=== PATIENT | female | born 1950 | race Caucasian/White ===

== ENCOUNTER 2022-01-05 15:35 | Inpatient (IN) | payer MEDICARE, MEDICAID ==
[2022-01-05 16:09] LABS: CHLORIDE,CL 104 mEq/L (98-106); SODIUM,NA 143 mEq/L (136-145)
[2022-01-05 16:31] LABS: PTT,PARTIAL THROMBOPLSTIN TIME 25.2 SEC (23.2-32.3)
[2022-01-05] MEDS: Sodium Chloride 0.9% 1,000 ML IV SCH (17:30)
[2022-01-05 17:39] LABS: AMPHETAMINES,URINE NEGATIVE (NEGATIVE); BARBITURATES,URINE NEGATIVE (NEGATIVE); BENZODIAZEPINE,URINE POSITIVE (NEGATIVE); MDMA (ECSTASY), URINE NEGATIVE (NEGATIVE); METHADONE,URINE NEGATIVE (NEGATIVE); METHAMPHETAMINES,URINE NEGATIVE (NEGATIVE); OPIATES,URINE POSITIVE (NEGATIVE); OXYCODONE,URINE POSITIVE (NEGATIVE); PHENCYCLIDINE,URINE NEGATIVE (NEGATIVE); TCA,URINE NEGATIVE (NEGATIVE)
[2022-01-05] MEDS ORDERED: Carvedilol 6.25 MG Tab PO ONE (18:16)
[2022-01-05] MEDS ORDERED: cloNIDine 0.1 MG Tab PO ONE (18:31)
[2022-01-05] MEDS: hydrALAZINE 25 MG Tab PO SCH (20:17)
[2022-01-05] MEDS: Simvastatin 40 MG Tab PO SCH (20:17)
[2022-01-06] MEDS: Sodium Chloride 0.9% 1,000 ML IV SCH (02:08)
[2022-01-06] MEDS: buPROPion 150 MG Tab.SR PO SCH (07:52)
[2022-01-06] MEDS: Carvedilol 6.25 MG Tab PO SCH ×2 (07:52→20:34)
[2022-01-06] MEDS: Estradiol 1 MG Tab PO SCH (07:52)
[2022-01-06] MEDS: Losartan 25 MG Tab PO SCH (07:52)
[2022-01-06] MEDS: Potassium Chloride 10 MEQ Tab.ER PO SCH (07:53)
[2022-01-06] MEDS: Ascorbic Acid 500 MG Tab PO SCH (07:53)
[2022-01-06] MEDS: Montelukast 10 MG Tab PO SCH (07:53)
[2022-01-06] MEDS: DULoxetine 30 MG Cap PO SCH (07:53)
[2022-01-06] MEDS: hydrALAZINE 25 MG Tab PO SCH ×2 (07:54→20:34)
[2022-01-06] MEDS: Pantoprazole 40 MG Tab.CR PO SCH (08:21)
[2022-01-06] MEDS ORDERED: oxyCODONE ER 10 MG TAB.ER PO PRN (10:19)
[2022-01-06] MEDS ORDERED: oxyCODONE 5 MG Tab PO PRN (10:51)
[2022-01-06] MEDS: Simvastatin 40 MG Tab PO SCH (20:34)
[2022-01-06] MEDS: Enoxaparin 40 MG/0.4 ML Syringe SUBCUT SCH (20:34)
[2022-01-07] MEDS: Ascorbic Acid 500 MG Tab PO SCH (07:43)
[2022-01-07] MEDS: Carvedilol 6.25 MG Tab PO SCH ×2 (07:43→20:47)
[2022-01-07] MEDS: Potassium Chloride 10 MEQ Tab.ER PO SCH (07:43)
[2022-01-07] MEDS: Losartan 25 MG Tab PO SCH (07:43)
[2022-01-07] MEDS: DULoxetine 30 MG Cap PO SCH (07:43)
[2022-01-07] MEDS: hydrALAZINE 25 MG Tab PO SCH ×2 (07:43→20:46)
[2022-01-07] MEDS: Pantoprazole 40 MG Tab.CR PO SCH (07:44)
[2022-01-07] MEDS: Montelukast 10 MG Tab PO SCH (07:44)
[2022-01-07] MEDS: buPROPion 150 MG Tab.SR PO SCH (07:44)
[2022-01-07] MEDS: Estradiol 1 MG Tab PO SCH (07:44)
[2022-01-07] MEDS ORDERED: Cyanocobalamin (Vitamin B12) 1,000 MCG/ML SDV IM ONE (16:05)
[2022-01-07] MEDS: Enoxaparin 40 MG/0.4 ML Syringe SUBCUT SCH (20:46)
[2022-01-07] MEDS: Simvastatin 40 MG Tab PO SCH (20:47)
[2022-01-08] MEDS: Pantoprazole 40 MG Tab.CR PO SCH (07:43)
[2022-01-08] MEDS: Estradiol 1 MG Tab PO SCH (07:44)
[2022-01-08] MEDS: DULoxetine 30 MG Cap PO SCH (07:44)
[2022-01-08] MEDS: Potassium Chloride 10 MEQ Tab.ER PO SCH (07:45)
[2022-01-08] MEDS: Montelukast 10 MG Tab PO SCH (07:46)
[2022-01-08] MEDS: Ascorbic Acid 500 MG Tab PO SCH (07:46)
[2022-01-08] MEDS: buPROPion 150 MG Tab.SR PO SCH (07:46)
[2022-01-08] MEDS: Carvedilol 6.25 MG Tab PO SCH (07:54)
[2022-01-08] MEDS: hydrALAZINE 25 MG Tab PO SCH (07:54)
[2022-01-08 07:55] VITALS: BP 142/88; PULSE 98
[2022-01-08] MEDS: Losartan 25 MG Tab PO SCH (07:55)
== END 2022-01-08 09:13 | disposition swing bed (61) | DRG 896 ==
LOC: CC.ED 15:35 → UNDOADMIN 19:00 → CC.MS 19:00
PROVIDERS: ADMIT Nurse Practitioner Family; ATTEND Family Medicine
DX: R41.82 Altered mental status, unspecified (principal); F11.90 Opioid use, unspecified, uncomplicated; U07.1 COVID-19; F42.3 Hoarding disorder; I10 Essential (primary) hypertension; M79.7 Fibromyalgia; M19.90 Unspecified osteoarthritis, unspecified site; Z79.899 Other long term (current) drug therapy; Z88.1 Allergy status to other antibiotic agents; Z88.8 Allergy status to other drugs, medicaments and biological substances
CPT/HCPCS: 36415; 70450; 80048; 80305-QW; 81001; 82550; 84484; 85025; 85610; 85730; 97110-GP; 97161-GP; 99285-25; A9270-GY; J1650; J3420; J7030; U0002

== ENCOUNTER 2022-01-08 09:05 | Inpatient (IN) | payer MEDICARE, MEDICAID ==
[2022-01-08] MEDS: Acetaminophen 325 MG Tab PO PRN (14:28)
[2022-01-08] MEDS: Simvastatin 40 MG Tab PO SCH (19:45)
[2022-01-08] MEDS: Carvedilol 6.25 MG Tab PO SCH (19:45)
[2022-01-08] MEDS: hydrALAZINE 25 MG Tab PO SCH (19:45)
[2022-01-08] MEDS: Enoxaparin 40 MG/0.4 ML Syringe SUBCUT SCH (19:46)
[2022-01-09] MEDS: Acetaminophen 325 MG Tab PO PRN ×2 (02:00→19:50)
[2022-01-09] MEDS: Carvedilol 6.25 MG Tab PO SCH ×2 (07:41→19:50)
[2022-01-09] MEDS: DULoxetine 30 MG Cap PO SCH (07:41)
[2022-01-09] MEDS: Ascorbic Acid 500 MG Tab PO SCH (07:41)
[2022-01-09] MEDS: hydrALAZINE 25 MG Tab PO SCH ×2 (07:42→19:50)
[2022-01-09] MEDS: Losartan 100 MG Tab PO SCH (07:42)
[2022-01-09] MEDS: Montelukast 10 MG Tab PO SCH (07:42)
[2022-01-09] MEDS: Estradiol 1 MG Tab PO SCH (07:42)
[2022-01-09] MEDS: Pantoprazole 40 MG Tab.CR PO SCH (07:43)
[2022-01-09] MEDS: Potassium Chloride 10 MEQ Tab.ER PO SCH (07:44)
[2022-01-09] MEDS ORDERED: buPROPion 150 MG Tab.SR PO SCH (08:00)
[2022-01-09] MEDS: Ondansetron 4 MG Tab.DIS PO PRN ×3 (12:30→21:37)
[2022-01-09] MEDS: Enoxaparin 40 MG/0.4 ML Syringe SUBCUT SCH (19:44)
[2022-01-09] MEDS: Simvastatin 40 MG Tab PO SCH (19:44)
[2022-01-10] MEDS: Pantoprazole 40 MG Tab.CR PO SCH (06:09)
[2022-01-10] MEDS: Ascorbic Acid 500 MG Tab PO SCH (08:13)
[2022-01-10] MEDS: DULoxetine 30 MG Cap PO SCH (08:14)
[2022-01-10] MEDS: hydrALAZINE 25 MG Tab PO SCH ×2 (08:15→19:50)
[2022-01-10] MEDS: Carvedilol 6.25 MG Tab PO SCH ×2 (08:15→19:50)
[2022-01-10] MEDS: Potassium Chloride 10 MEQ Tab.ER PO SCH (08:15)
[2022-01-10] MEDS: Estradiol 1 MG Tab PO SCH (08:16)
[2022-01-10] MEDS: Losartan 100 MG Tab PO SCH (08:19)
[2022-01-10] MEDS: Montelukast 10 MG Tab PO SCH (08:19)
[2022-01-10] MEDS: Ondansetron 4 MG Tab.DIS PO PRN ×3 (08:24→20:35)
[2022-01-10] MEDS ORDERED: Gabapentin 300 MG Cap PO SCH (12:30)
[2022-01-10] MEDS: Acetaminophen 325 MG Tab PO PRN ×2 (12:59→20:35)
[2022-01-10] MEDS: Simvastatin 40 MG Tab PO SCH (19:50)
[2022-01-10] MEDS: Enoxaparin 40 MG/0.4 ML Syringe SUBCUT SCH (19:50)
[2022-01-11] MEDS: Ondansetron 4 MG Tab.DIS PO PRN ×3 (00:35→18:55)
[2022-01-11] MEDS: ESOMEPRAZOLE 40 MG PO SCH (06:00)
[2022-01-11] MEDS: Estradiol 1 MG Tab PO SCH (08:03)
[2022-01-11] MEDS: DULoxetine 30 MG Cap PO SCH (08:03)
[2022-01-11] MEDS: hydrALAZINE 25 MG Tab PO SCH ×2 (08:04→19:32)
[2022-01-11] MEDS: Montelukast 10 MG Tab PO SCH (08:05)
[2022-01-11] MEDS: Ascorbic Acid 500 MG Tab PO SCH (08:05)
[2022-01-11] MEDS: Losartan 100 MG Tab PO SCH (08:12)
[2022-01-11] MEDS: Potassium Chloride 10 MEQ Tab.ER PO SCH (08:13)
[2022-01-11] MEDS: Carvedilol 6.25 MG Tab PO SCH ×2 (08:13→19:32)
[2022-01-11] MEDS: Acetaminophen 325 MG Tab PO PRN ×2 (08:15→18:55)
[2022-01-11] MEDS: oxyCODONE 5 MG Tab PO PRN ×2 (09:56→22:55)
[2022-01-11] MEDS: Enoxaparin 40 MG/0.4 ML Syringe SUBCUT SCH (19:31)
[2022-01-11] MEDS: Simvastatin 40 MG Tab PO SCH (19:32)
[2022-01-12] MEDS: Acetaminophen 325 MG Tab PO PRN (04:43)
[2022-01-12] MEDS: Ondansetron 4 MG Tab.DIS PO PRN (04:43)
[2022-01-12] MEDS: ESOMEPRAZOLE 40 MG PO SCH (06:13)
[2022-01-12] MEDS: Ascorbic Acid 500 MG Tab PO SCH (07:25)
[2022-01-12] MEDS: Potassium Chloride 10 MEQ Tab.ER PO SCH ×2 (07:26→19:41)
[2022-01-12] MEDS: Estradiol 1 MG Tab PO SCH (07:26)
[2022-01-12] MEDS: Montelukast 10 MG Tab PO SCH (07:27)
[2022-01-12] MEDS: DULoxetine 30 MG Cap PO SCH (07:27)
[2022-01-12] MEDS: Carvedilol 6.25 MG Tab PO SCH ×2 (07:28→19:41)
[2022-01-12] MEDS: Losartan 100 MG Tab PO SCH (07:28)
[2022-01-12] MEDS: hydrALAZINE 25 MG Tab PO SCH ×2 (07:28→19:40)
[2022-01-12] MEDS: Calcium Carbonate 500 MG Tab.Chew PO PRN (09:07)
[2022-01-12] MEDS: oxyCODONE 5 MG Tab PO PRN (12:15)
[2022-01-12 13:32] LABS: CHLORIDE,CL 86 mEq/L (98-106)
[2022-01-12 13:34] LABS: SODIUM,NA 124 mEq/L (136-145)
[2022-01-12] MEDS ORDERED: Potassium Chloride Riders 40 MEQ in Premix Bag 1 BAG IV ONE (14:00)
[2022-01-12] MEDS ORDERED: Sodium Chloride 0.9% 1,000 ML IV SCH (14:00)
[2022-01-12] MEDS ORDERED: Loperamide 2 MG Cap PO PRN (14:08)
[2022-01-12] MEDS ORDERED: Loperamide 2 MG Cap PO ONE (14:08)
[2022-01-12] MEDS: Magnesium Sulfate/Water 2 GM in Premix Bag 1 BAG IV SCH ×2 (14:33→16:34)
[2022-01-12] MEDS: Enoxaparin 40 MG/0.4 ML Syringe SUBCUT SCH (19:40)
[2022-01-12] MEDS: Simvastatin 40 MG Tab PO SCH (19:41)
[2022-01-13] MEDS: Acetaminophen 325 MG Tab PO PRN (00:01)
[2022-01-13] MEDS: Calcium Carbonate 500 MG Tab.Chew PO PRN ×2 (03:42→12:53)
[2022-01-13] MEDS: ESOMEPRAZOLE 40 MG PO SCH (06:20)
[2022-01-13] MEDS: Estradiol 1 MG Tab PO SCH (07:36)
[2022-01-13] MEDS: Losartan 100 MG Tab PO SCH (07:37)
[2022-01-13] MEDS: Ascorbic Acid 500 MG Tab PO SCH (07:38)
[2022-01-13] MEDS: DULoxetine 30 MG Cap PO SCH (07:42)
[2022-01-13] MEDS: Montelukast 10 MG Tab PO SCH (07:42)
[2022-01-13] MEDS: hydrALAZINE 25 MG Tab PO SCH ×2 (07:42→20:18)
[2022-01-13] MEDS: Carvedilol 6.25 MG Tab PO SCH ×2 (07:43→20:18)
[2022-01-13] MEDS: Potassium Chloride 10 MEQ Tab.ER PO SCH (07:44)
[2022-01-13 07:49] LABS: CHLORIDE,CL 93 mEq/L (98-106); SODIUM,NA 129 mEq/L (136-145)
[2022-01-13] MEDS: oxyCODONE 5 MG Tab PO PRN (17:25)
[2022-01-13] MEDS: Simvastatin 40 MG Tab PO SCH (20:18)
[2022-01-13] MEDS: Enoxaparin 40 MG/0.4 ML Syringe SUBCUT SCH (20:18)
[2022-01-14] MEDS: ESOMEPRAZOLE 40 MG PO SCH (06:14)
[2022-01-14 07:42] LABS: CHLORIDE,CL 101 mEq/L (98-106); SODIUM,NA 137 mEq/L (136-145)
[2022-01-14] MEDS: Carvedilol 6.25 MG Tab PO SCH ×2 (08:16→19:44)
[2022-01-14] MEDS: hydrALAZINE 25 MG Tab PO SCH ×2 (08:16→19:44)
[2022-01-14] MEDS: Losartan 100 MG Tab PO SCH (08:16)
[2022-01-14] MEDS: DULoxetine 30 MG Cap PO SCH (08:17)
[2022-01-14] MEDS: Estradiol 1 MG Tab PO SCH (08:17)
[2022-01-14] MEDS: Montelukast 10 MG Tab PO SCH (08:18)
[2022-01-14] MEDS: Potassium Chloride 10 MEQ Tab.ER PO SCH (08:18)
[2022-01-14] MEDS: Ascorbic Acid 500 MG Tab PO SCH (08:18)
[2022-01-14] MEDS ORDERED: Tuberculin, PPD 5 Units/0.1 ML 1 ML MDV IDERM ONE (14:13)
[2022-01-14] MEDS: Simvastatin 40 MG Tab PO SCH (19:44)
[2022-01-14] MEDS: Enoxaparin 40 MG/0.4 ML Syringe SUBCUT SCH (19:44)
[2022-01-14] MEDS: Acetaminophen 325 MG Tab PO PRN (21:18)
[2022-01-15] MEDS: Calcium Carbonate 500 MG Tab.Chew PO PRN ×2 (05:17→19:44)
[2022-01-15] MEDS: ESOMEPRAZOLE 40 MG PO SCH (06:35)
[2022-01-15] MEDS: DULoxetine 30 MG Cap PO SCH (07:49)
[2022-01-15] MEDS: Estradiol 1 MG Tab PO SCH (07:49)
[2022-01-15] MEDS: Potassium Chloride 10 MEQ Tab.ER PO SCH (07:50)
[2022-01-15] MEDS: Montelukast 10 MG Tab PO SCH (07:51)
[2022-01-15] MEDS: Ascorbic Acid 500 MG Tab PO SCH (07:51)
[2022-01-15] MEDS: hydrALAZINE 25 MG Tab PO SCH ×2 (07:57→19:45)
[2022-01-15] MEDS: Losartan 100 MG Tab PO SCH (07:58)
[2022-01-15] MEDS: Carvedilol 6.25 MG Tab PO SCH ×2 (07:58→19:45)
[2022-01-15] MEDS: Acetaminophen 325 MG Tab PO PRN (08:07)
[2022-01-15] MEDS: Enoxaparin 40 MG/0.4 ML Syringe SUBCUT SCH (19:44)
[2022-01-15] MEDS: Simvastatin 40 MG Tab PO SCH (19:44)
[2022-01-15 19:45] VITALS: PULSE 95
[2022-01-16] MEDS: Acetaminophen 325 MG Tab PO PRN (01:11)
[2022-01-16] MEDS: Calcium Carbonate 500 MG Tab.Chew PO PRN (01:12)
[2022-01-16] MEDS: ESOMEPRAZOLE 40 MG PO SCH (06:58)
[2022-01-16 07:19] LABS: CHLORIDE,CL 91 mEq/L (98-106); SODIUM,NA 129 mEq/L (136-145)
[2022-01-16] MEDS: DULoxetine 30 MG Cap PO SCH (08:01)
[2022-01-16] MEDS: Estradiol 1 MG Tab PO SCH (08:01)
[2022-01-16] MEDS: Montelukast 10 MG Tab PO SCH (08:02)
[2022-01-16] MEDS: Ascorbic Acid 500 MG Tab PO SCH (08:02)
[2022-01-16] MEDS: Potassium Chloride 10 MEQ Tab.ER PO SCH (08:03)
[2022-01-16] MEDS: Losartan 100 MG Tab PO SCH (08:06)
[2022-01-16] MEDS: Carvedilol 6.25 MG Tab PO SCH (08:06)
[2022-01-16 08:07] VITALS: BP 155/85
[2022-01-16] MEDS: hydrALAZINE 25 MG Tab PO SCH (08:07)
[2022-01-16] MEDS ORDERED: ALPRAZolam 0.25 MG Tab PO PRN ×2 (09:21→09:33)
[2022-01-16] MEDS ORDERED: Non-Formulary Medication 1 Each (Ascorbic Acid [Vitamin C] 1,000 MG Tablet) PO SCH (09:30)
[2022-01-16] MEDS ORDERED: Cyclobenzaprine 10 MG Tab PO SCH (20:00)
[2022-01-16] MEDS ORDERED: Non-Formulary Medication 1 Each (Rosuvastatin [Crestor] 10 MG Tablet) PO SCH (20:00)
[2022-01-16] MEDS ORDERED: Carvedilol 6.25 MG Tab PO SCH (20:00)
[2022-01-16] MEDS ORDERED: hydrALAZINE 25 MG Tab PO SCH (20:00)
[2022-01-17] MEDS ORDERED: Montelukast 10 MG Tab PO SCH (08:00)
[2022-01-17] MEDS ORDERED: ESTRADIOL 0.5 MG PO SCH (08:00)
[2022-01-17] MEDS ORDERED: Potassium Chloride 10 MEQ Tab.ER PO SCH (08:00)
[2022-01-17] MEDS ORDERED: Non-Formulary Medication 1 Each (Esomeprazole Magnesium [Esomeprazole Magnesium] 40 MG Cap PO SCH (08:00)
[2022-01-17] MEDS ORDERED: LOSARTAN POTASSIUM 50 MG PO SCH (08:00)
[2022-01-17] MEDS ORDERED: Non-Formulary Medication 1 Each (Duloxetine [Cymbalta] 60 MG Cap) PO SCH (08:00)
[2022-01-17] MEDS ORDERED: Non-Formulary Medication 1 Each (Magnesium [Magnesium] 250 MG Tablet) PO SCH (08:00)
== END 2022-01-16 10:10 | DRG 947 ==
LOC: UNDOADMIN 09:05 → CC.MS 09:05
PROVIDERS: ADMIT Nurse Practitioner Family; ATTEND Family Medicine
PROC: 8E0ZXY6 Isolation (ICD-10-PCS; principal; 2022-01-08)
DX: R53.1 Weakness (principal); U07.1 COVID-19; T42.4X1D Poisoning by benzodiazepines, accidental (unintentional), subsequent encounter; Y92.009 Unspecified place in unspecified non-institutional (private) residence as the place of occurrence of the external cause; T40.2X1D Poisoning by other opioids, accidental (unintentional), subsequent encounter; W19.XXXD Unspecified fall, subsequent encounter; Z86.16 Personal history of COVID-19; I10 Essential (primary) hypertension; F42.3 Hoarding disorder; Z79.899 Other long term (current) drug therapy
CPT/HCPCS: 36415; 80053; 81001; 83735; 85025; 86580; 87045; 87046; 87493; 89055; 97110-GP; 97530-GP; A9270-GY; J1650; J3475; J3480; J7030

== ENCOUNTER 2024-07-16 10:45 | Emergency (ER) | payer MEDICARE, MEDICAID ==
[2024-07-16 11:36] VITALS: BP 127/61; PULSE 87
[2024-07-16 11:41] LABS: BASOPHILS ABSOLUTE AUTO 0.05 10^3/uL (0.00-0.50); BASOPHILS PERCENT AUTO 0.5 % (0-1); EOSINOPHILS ABSOLUTE AUTO 0.13 10^3/uL (0.00-1.50); EOSINOPHILS PERCENT AUTO 1.4 % (0-6); HEMATOCRIT 34.7 % (37.0-47.0); IMMATURE GRAN ABSOLUTE AUTO 0.02 10^3/uL (0.00-0.49); IMMATURE GRAN PERCENT AUTO 0.2 % (0.0-4.9); LYMPHOCYTES ABSOLUTE AUTO 1.67 10^3/uL (0.60-5.00); LYMPHOCYTES PERCENT AUTO 18.1 % (24-44); MEAN CORPUSCULAR HEMOGLOBIN 30.3 pg (27.0-32.0); MEAN CORPUSCULAR HGB CONC 31.7 g/dL (32.0-36.0); MEAN CORPUSCULAR VOLUME 95.6 fL (83.0-97.0); MONOCYTES ABSOLUTE AUTO 0.68 10^3/uL (0.00-1.50); MONOCYTES PERCENT AUTO 7.4 % (0-10); NEUTROPHILS ABSOLUTE AUTO 6.66 x10^3/uL (1.80-8.00); NEUTROPHILS PERCENT AUTO 72.4 % (41-71); PLATELET COUNT,PLT 319 10^3/uL (150-400); RED BLOOD CELL COUNT 3.63 x10^6/uL (4.00-5.50); WHITE BLOOD CELL COUNT,WBC 9.2 10^3/uL (4.0-11.0)
[2024-07-16 11:54] LABS: ALANINE AMINOTRANSFERASE,ALT 29 U/L (12-78); ALBUMIN 3.4 g/dL (3.4-5.0); ALKALINE PHOSPHATASE 83 U/L (46-116); ASPARTATE AMNIOTRANSFERASE,AST 23 U/L (15-37); BILIRUBIN TOTAL 0.7 mg/dL (0.0-1.0); BLOOD UREA NITROGEN,BUN 16 mg/dL (7-18); CALCIUM 9.1 mg/dL (8.4-10.1); CARBON DIOXIDE,CO2 27 mmol/L (21-32); CHLORIDE,CL 105 mEq/L (98-106); CREATININE 1.2 mg/dL (0.6-1.0); EST CRCL DRUG DOSING (CG) 31.51 mL/min; GLUCOSE RANDOM 108 mg/dL (75-99); PROTEIN TOTAL,TP 7.2 g/dL (6.4-8.2); SODIUM,NA 142 mEq/L (136-145)
[2024-07-16 11:57] LABS: C-REACTIVE PROTEIN < 0.50 mg/dL (<=0.50); ESTIMATED GFR 48 mL/min (>=60)
[2024-07-16 12:05] LABS: APPEARANCE,URINE CLOUDY (CLEAR); COLOR,URINE YELLOW (YELLOW); GLUCOSE,URINE NEGATIVE (NEGATIVE); KETONES,URINE TRACE mg/dL (NEGATIVE); LEUKOCYTE ESTERASE,URINE SMALL (NEGATIVE); NITRITE,URINE POSITIVE (NEGATIVE); OCCULT BLOOD,URINE NEGATIVE (NEGATIVE); PH,URINE 5.5 (4.5-8.0); PROTEIN,URINE 30 mg/dL (NEGATIVE); UROBILINOGEN,URINE 0.2 EU/dL (0.2-1.0)
[2024-07-16 12:07] LABS: BILIRUBIN,URINE SMALL (NEGATIVE)
[2024-07-16 12:15] LABS: BACTERIA,URINE MODERATE /HPF (NOT SEEN); EPITHELIAL CELLS,URINE MODERATE /HPF (NOT SEEN); RBC,URINE 0-5 /HPF (0-5); WBC,URINE >100 /HPF (0-5)
[2024-07-16] MEDS: Take Home: Sulfamethoxazole/Trimethoprim 800-160 MG Tab, 6 Tab Pack PO ONE (12:18)
== END 2024-07-16 12:24 | disposition home or self-care (01) ==
LOC: CC.ED 10:45
DX: N39.0 Urinary tract infection, site not specified (principal); I10 Essential (primary) hypertension; E78.00 Pure hypercholesterolemia, unspecified; Z87.891 Personal history of nicotine dependence; Z79.899 Other long term (current) drug therapy; Z88.1 Allergy status to other antibiotic agents; Z88.8 Allergy status to other drugs, medicaments and biological substances
CPT/HCPCS: 36415; 80053; 81001; 85025; 86140; 87086; 87088; 87186; 99284; A9270-GY

== ENCOUNTER 2024-08-18 11:15 | Emergency (ER) | payer MEDICARE, MEDICAID ==
[2024-08-18] MEDS: Orphenadrine 60 MG/2 ML Inj IM ONE (12:21)
[2024-08-18] MEDS: Ketorolac 60 MG/2 ML SDV IM ONE (15:24)
[2024-08-18 15:54] VITALS: BP 138/76; PULSE 80
== END 2024-08-18 13:45 | disposition home or self-care (01) ==
LOC: CC.ED 11:15
DX: M54.31 Sciatica, right side (principal); E78.00 Pure hypercholesterolemia, unspecified; I10 Essential (primary) hypertension; Z79.899 Other long term (current) drug therapy; Z88.1 Allergy status to other antibiotic agents; Z88.8 Allergy status to other drugs, medicaments and biological substances
CPT/HCPCS: 96372; 99283; J2360; J3360; 99284